=== PATIENT | male | born 1990 ===

== ENCOUNTER 2019-06-27 19:36 | Emergency (ER) | payer SELFPAY ==
[~2019-06-27] VITALS: Ht 167.6 cm; Wt 73.0 kg
[2019-06-27 19:47] VITALS: BP 133/89
== END 2019-06-27 21:30 | disposition left against medical advice (07) ==
LOC: EMS 19:37
DX: R06.02 Shortness of breath (principal); Z53.21 Procedure and treatment not carried out due to patient leaving prior to being seen by health care provider